=== PATIENT | female | born 1985 ===

== ENCOUNTER 2022-10-12 08:23 | Emergency (ER) | payer BC, SELFPAY ==
--- NOTE | 2022-10-12 08:24 | ED.WOUNDLAC ---
HPI - Wound/Laceration General Chief Complaint: Wound/Laceration Stated Complaint: laceration to thumb and pointer finger Time Seen by Provider: 10/12/22 08:23 Source: patient Mode of arrival: ambulatory Limitations: no limitations History of Present Illness HPI narrative: Court is a 37-year-old female patient presenting to the clinic today with complaints of a laceration to her thumb and index finger that occurred approximately 1 hour ago. She reports she was opening up a jar and it split and cut her her right palmar aspect of the thumb and palmar aspect of the index finger. Bleeding controlled. Tetanus shot up-to-date Related Data Home Medications Medication Instructions Recorded Confirmed rizatriptan 10 mg tablet 10 mg PO DIRECTED 10/12/22 10/12/22 Allergies Allergy/AdvReac Type Severity Reaction Status Date / Time NKDA Allergy Mild Other Uncoded 10/12/22 08:33 Review of Systems Review of Systems: Pertinent positives per HPI. Patient denies any fever, chills, rash, headache, visual changes, dizziness, cough, runny nose, sore throat, shortness of breath, chest pain, palpitations, nausea, vomiting, diarrhea, constipation, abdominal pain, or any urinary issues. [facility] Family History Family History Mother Family history of thyroid disease Social History Social History Smoking status: Never smoker Alcohol intake: current Comments At the time of my signature, I reviewed and agree with the nursing past medical, surgical, social, and family history. There is no relevant family history pertinent to the patient complaint. Exam Narrative: General: Well-developed, well nourished, in no apparent distress Head: Normocephalic, atraumatic. Cardio: Regular rate and rhythm, s1 and s2 normal, no murmur appreciated. Resp: Clear to auscultation bilaterally, no rhonchi, rales, wheezing or rubs. Integumentary: [place], warm, and dry, 1 cm laceration to the palmar aspect of the proximal right thumb near the webbing and a 0.25 cm laceration to the palmar aspect of the distal right index finger Course Course Emergency Course: Portions of this record may have been created with voice recognition software. Level of Care: Express Care Visit Vital Signs Vital signs: Vital Signs Temperature 36.9 C 10/12/22 08:34 Pulse Rate 92 10/12/22 08:34 Respiratory Rate 16 10/12/22 08:34 Blood Pressure 127/84 10/12/22 08:34 Pulse Oximetry 100 10/12/22 08:34 Temperature 36.9 C 10/12/22 08:34 Pulse Rate 92 10/12/22 08:34 Respiratory Rate 16 10/12/22 08:34 Blood Pressure 127/84 10/12/22 08:34 Pulse Oximetry 100 10/12/22 08:34 Vital signs reviewed Procedures Laceration Laceration 1: Date: 10/12/22 Site: hand (Right thumb) Side (If applicable): right Size (cm): 1 Description: linear and flap Depth: simple, single layer Local Anesthetic: lidocaine 1% Amount of anesthesia used (mL): 1 Pre-repair: wound explored and irrigated ====== Skin Level ====== Skin layer closed with: nylon Size (cm): 5-0 Number of sutures: 1 Technique: simple, interrupted ====== Subcutaneous Layer ====== ====== Muscle Layer ====== ====== Tendon Layer ====== Dressing: Verbal consent obtained for laceration repair. Risk and benefits explained and patient voiced understanding. Area was cleansed with Techni care and a 25 gauge needle was then used to instill (1) ml of 1% lidocaine without epi into the wound edges. Area was prepped and draped using sterile technique. A 5-0 suture on a p needle was used to place (1) interrupted sutures bringing the wound edges together- well approximated. Patient tolerated procedure well. Sterile dressing applied. MDM - Wound/Laceration MDM Narrative Medical
[2022-10-12 08:34] VITALS: BP 127/84; PULSE 92; RESP 16; TEMP 36.9; O2SAT 100
== END 2022-10-12 09:05 | disposition home or self-care (01) ==
PROVIDERS: Emergency Provider Nurse Practitioner Family
DX: S61.011A Laceration without foreign body of right thumb without damage to nail, initial encounter (principal); W25.XXXA Contact with sharp glass, initial encounter
CPT/HCPCS: 12001; 99212; G0463